=== PATIENT | female | born 1995 | race Caucasian/White ===

== ENCOUNTER 2019-06-23 08:46 | Emergency (ER) | payer OTHER, SELFPAY ==
--- NOTE | 2019-06-23 10:18 | RAD ---
EXAM: 3 views of the right hand COMPARISON: None HISTORY: Hand pain FINDINGS: 3 views of the hand shows no evidence of acute fracture or dislocation. No degenerative susan nges are seen. No soft tissue swelling is present. IMPRESSION: Unremarkable exam.
== END 2019-06-23 10:35 | disposition home or self-care (01) ==
LOC: ERS 08:46
DX: S60.221A Contusion of right hand, initial encounter (principal); F17.210 Nicotine dependence, cigarettes, uncomplicated; W01.0XXA Fall on same level from slipping, tripping and stumbling without subsequent striking against object, initial encounter